=== PATIENT | male | born 1945 | race Caucasian/White ===

== ENCOUNTER → 2020-08-16 08:48 | Outpatient (BNVA) | payer MEDICARE, BC, SELFPAY | PROVIDERS: PCP Family Medicine; Visit Provider Family Medicine | DX: I10 Essential (primary) hypertension (principal); N40.0 Benign prostatic hyperplasia without lower urinary tract symptoms; R79.89 Other specified abnormal findings of blood chemistry | CPT/HCPCS: 80053; 80061; 82043; 82670; 84153; 84403; 85025 ==

== ENCOUNTER → 2021-09-27 12:18 | Outpatient (BNVA) | payer MEDICARE, BC, SELFPAY | PROVIDERS: PCP Family Medicine; Visit Provider Family Medicine | DX: B35.1 Tinea unguium (principal) | CPT/HCPCS: 80053 ==

== ENCOUNTER 2022-04-10 10:59 | Outpatient (CLI) | payer MEDICARE, BC, SELFPAY ==
--- NOTE | 2022-04-10 11:09 | XR_ITS ---
WS: [id number] Lumbar spine, 3 views, 04/10/2022 Clinical Data: low back pain Comparison: None. Findings: No compression fractures or subluxation is seen. No disc space narrowing is seen. There is large oste ophyte formation of the lower thoracic and all the lumbar vertebral bodies. The transverse processes and SI joints are normal. 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
== END 2022-04-10 11:00 | disposition home or self-care (01) ==
LOC: RAD 11:01
PROVIDERS: PCP Family Medicine; Visit Provider Emergency Medicine
DX: M47.816 Spondylosis without myelopathy or radiculopathy, lumbar region (principal)
CPT/HCPCS: 72100

== ENCOUNTER → 2022-06-28 09:03 | Outpatient (BNVA) | payer MEDICARE, BC, SELFPAY | PROVIDERS: PCP Family Medicine; Visit Provider Family Medicine | DX: I10 Essential (primary) hypertension (principal); R79.89 Other specified abnormal findings of blood chemistry; N40.0 Benign prostatic hyperplasia without lower urinary tract symptoms | CPT/HCPCS: 80053; 80061; 82043; 82670; 84153; 84403; 85025 ==

== ENCOUNTER → 2022-09-06 09:19 | Outpatient (BNVA) | payer MEDICARE, BC, SELFPAY | PROVIDERS: PCP Family Medicine; Visit Provider Family Medicine | DX: R79.89 Other specified abnormal findings of blood chemistry (principal) | CPT/HCPCS: 82670; 84402; 84403 ==

== ENCOUNTER → 2022-10-14 14:09 | Outpatient (BNVA) | payer MEDICARE, BC, SELFPAY | PROVIDERS: PCP Family Medicine; Visit Provider Dermatology | DX: C44.712 Basal cell carcinoma of skin of right lower limb, including hip (principal) | CPT/HCPCS: 11102; 17000; 17003; 99213 ==

== ENCOUNTER → 2022-10-21 10:54 | Outpatient (BNVA) | payer MEDICARE, BC, SELFPAY | PROVIDERS: PCP Family Medicine; Visit Provider Dermatology | DX: C44.712 Basal cell carcinoma of skin of right lower limb, including hip (principal) | CPT/HCPCS: 17262 ==

== ENCOUNTER 2022-11-07 03:23 | Inpatient (IN) | payer MEDICARE, BC, SELFPAY ==
[2022-11-07] VITALS (20 sets, daily range): BP systolic 90–156; BP diastolic 51–91; PULSE 65–85; RESP 16–18; TEMP 36.2–36.8; O2SAT 93–97; BMI 27.9
--- NOTE | 2022-11-07 | XR_ITS ---
WS: [id number] XR foot RT 2V [id number] REASON FOR EXAM: JOE PICS FINDINGS: Removal of the previously defined foreign body from the plantar region of the proximal phalanx the th ird toe. XR/XR foot RT 2V [id number] IMPRESSION: Foreign body removal as above.
--- NOTE | 2022-11-07 04:11 | CTR_ITS ---
PROCEDURE INFORMATION: Exam: CT Right Lower Extremity With Contrast, Foot Exam date and time: 11/07/2022 4:32 AM Age: 77 years old Clinical indication: Cellulitis; Toes; Right TECHNIQUE: Imaging protocol: CT of the right lower extremity with intravenous contrast was performed. Exam focused on the foot. Radiation optimization: All CT scans at this facility use at least one of these dose optimization techniques: automated exposure control; mA and/or kV adjustment per patient size (includes targeted exams where dose is matched to clinical indication); or iterative reconstruction. Contrast material: OMNI 350; Contrast volume: 100 ml; Contrast route: INTRAVENOUS (IV); REPORTING DATA: Count of CT and Cardiac NM exams in prior 12 months: This patient has received 0 known CTs and 0 known cardiac nuclear medicine studies in the 12 months prior to the current study. COMPARISON: No relevant prior studies available. RADIATION DOSE METRICS: Total DLP (mGy-cm): 336.47 FINDINGS: Bones/joints: See Soft tissues finding. Soft tissues: There is a linear metallic density in the plantar soft tissues of the 3rd digit. There is diffuse cellulitis present. No definitive bony destructive change CT/CT foot RT w con [id number] IMPRESSION: Linear metallic density in the plantar soft tissues of the 3rd digit. There is diffuse cellulitis. No definitive osteomyelitis.
--- NOTE | 2022-11-07 04:13 | ED_ITS ---
HPI - Extremity Problem General: Chief complaint: Extremity Problem,Nontraumatic Stated complaint: right foot swollen & red Time Seen by Provider: 11/07/22 03:46 Source: patient Mode of arrival: ambulatory Limitations: no limitations History of Present Illness: 77-year-old male states that he has peripheral neuropathy and does not have feeling in his feet he states he started feeling like he had a low-grade fever on Friday and noticed he had erythema to his right foot. Seen his PCP has been on Bactrim states he thought it improved but tonight it was worsening does have erythema to his midfoot and his second and third toe he believes he may have a puncture wound on the bottom of his foot does not remember stepping on anything and states that he has really no feeling there. He had some slight drainage Associated symptoms: Reports fever(s); Deny chest pain or rash Review of Systems Const: Reports: fever(s); Denies: chills ENMT: Denies: throat pain or dental pain Card: Denies: chest pain Resp: Denies: dyspnea GI: Denies: abdominal pain, nausea, vomiting or diarrhea Musc: Reports: extremity pain; Denies: neck pain or back pain Skin/Breast: Reports: erythema; Denies: rash Neuro: Denies: headache(s) PFSH ED PFSH: Medical History BPH (benign prostatic hyperplasia) Essential hypertension History of kidney stones Low 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 Surgical History No pertinent past surgical history Family History Other Kidney stones Social History Smoking and tobacco status: never smoked Alcohol intake: current Alcohol type: beer Substance/Drug Use: never Physical Exam 2 Const: COMMON NORMALS: no acute distress HENMT: COMMON NORMALS: normocephalic and atraumatic HEAD & SCALP: normocephalic and atraumatic Eye: COMMON NORMALS: Equal, round and reactive pupils present and EOMs intact bilaterally PUPIL: Yes Equal, round and reactive pupils present Neck/C-Spine: COMMON NORMALS: full ROM and supple Chest: COMMONS NORMALS: normal inspection of the chest Resp: COMMON NORMALS: normal respiratory effort Cardio: COMMON NORMALS: regular rate, regular rhythm and No murmurs present (Cardio) RATE: regular rate RHYTHM: regular rhythm GI: INSPECTION: Yes normal to inspection Extremity: NARRATIVE EXTREMITY EXAM: Erythema to distal right foot to the midfoot with erythema to the second and third toes he is swelling to the dorsal aspect of his foot with a puncture wound distal pulses intact Neuro: COMMON NORMALS: moves all extremities and no focal motor deficits Psych: COMMON NORMALS: mental status grossly normal, Normal thought process present and cooperative THOUGHT PROCESS: Normal thought process present Skin: COMMON NORMALS: no rashes or lesions noted and no wounds GENERAL SKIN EXAM: no rashes or lesions noted Course Vital Signs: Vital signs: Vital Signs Temperature 98.2 F 11/07/22 03:57 Pulse Rate 85 11/07/22 05:02 Respiratory Rate 16 11/07/22 05:02 Blood Pressure 135/74 11/07/22 05:02 Pulse Oximetry 95 11/07/22 05:02 Oxygen Delivery Me thod Room Air 11/07/22 05:02 MDM - Extremity (Nontraumatic) Medical Decision Making Patient presents with a foreign body to his right foot along with cellulitis of consulted Dr. Granado who reviewed the images we will plan for admission with IV antibiotics and formal washout and removal of the foreign body patient is not septic. Lab Data 11/07/22 04:20 11/07/22 04:[address] 11/07/22 04:11 IMPRESSION: Linear metallic density in the plantar soft tissues of the 3rd digit. There is diffuse cellulitis. No definitive osteomyelitis. Laboratory Results WBC 9.8 10^3/uL (4.0-10.0) 11/07/22 04:20 RBC 4.80 10^6/uL (4.1-5.3) 11/07/22 04:20 Hgb 15.8 g/dL (11.7-16.6) 11/07/22 04:20 Hct 43.7 % (42.0-52.0) 11/07/22 04:20 MCV 91.0 fl (80-94) 11/07/22 04:20 MCH 32.9 pg (28.0-34.0) 11/07/22 04:20 MCHC 36.2 g/dL (30.0-36.0) H 11/07/22 04:20 RDW 12.1 % (12.1-15.1) 11/07/22 04:20 Plt Count 232 10^3/cmm (130-400) 11/07/22 04:20 MPV 10.3 fL (7.4-10.4) 11/07/22 04:20 Neut % (Auto) 74.2 % 11/07/22 04:20 Lymph % (Auto) 12.9 % 11/07/22 04:20 Cole % (Auto) 7.9 % 11/07/22 04:20 Eos % (Auto) 3.9 % 11/07/22 04:20 Baso % (Auto) 0.6 % 11/07/22 04:20 Neut # (Auto) 7.23 10^3/uL (1.8-7.7) 11/07/22 04:20 Lymph # (Auto) 1.3 10^3/uL (0.8-4.8) 11/07/22 04:20 Cole # (Auto) 0.8 10^3/uL (0.2-0.9) 11/07/22 04:20 Eos # (Auto) 0.4 10^3/uL (0.0-0.8) 11/07/22 04:20 Baso # (Auto) 0.1 10^3/uL (0.0-0.1) 11/07/22 04:20 Nucleated RBC % (auto) 0 % 11/07/22 04:20 Nucleated RBCs # 0.0 /100WBC 11/07/22 04:20 ESR 18 mm/hr (0-10) H 11/07/22 04:20 Sodium 140 mmol/L (136-145) 11/07/22 04:20 Potassium 4.7 mmol/L (3.5-5.1) 11/07/22 04:20 Chloride 104 mmol/L (98-107) 11/07/22 04:20 Carbon Dioxide 25 mmol/L (22-29) 11/07/22 04:20 Anion Gap 15.7 (5-19) 11/07/22 04:20 BUN 15 mg/dL (8-23) 11/07/22 04:20 Creatinine 1.1 mg/dL (0.7-1.2) 11/07/22 04:20 GFR Calculation Not Reportable 11/07/22 04:20 Glucose 114 mg/dL (65-115) 11/07/22 04:20 Calculated Osmolality 292 mOsm/kg (285-295) 11/07/22 04:20 Calcium 9.2 mg/dL (8.5-10.5) 11/07/22 04:20 Total Bilirubin 0.2 mg/dL (0.15-1.2) 11/07/22 04:20 AST 19 U/L (0-40) 11/07/22 04:20 ALT 17 U/L (0-41) 11/07/22 04:20 Alkaline Phosphatase 91 U/L (40-130) 11/07/22 04:20 C-Reactive Protein 99.4 mg/L (0.0-4.9) H 11/07/22 04:20 Total Protein 6.7 g/dL (6.6-8.7) 11/07/22 04:20 Albumin 4.2 g/dL (3.5-5.2) 11/07/22 04:20 Globulin 2.5 g/dL (1.3-4.6) 11/07/22 04:20 Discharge Plan Discharge Patient Disposition: Admitted As Inpatient Clinical Impression: Cellulitis of right foot, Acute foreign body of right foot Condition: Stable Prescriptions: No Action omega-3 fatty acids [Fish Oil Concentrate] 1,000 mg capsule 1,000 mg PO BID potassium citrate 5 mEq (540 mg) tablet extended release 2.5 meq PO DAILY Rx Instructions: OTC testosterone 200 mg pellet 200 mg SUBCUT .EVERY 4 - 6 MONTHS cholecalciferol (vitamin D3) 125 mcg (5,000 unit) capsule 125 mcg PO DAILY tamsulosin [Flomax] 0.4 mg capsule 0.4 mg PO BID 90 Days Qty: 180 1RF meloxicam 15 mg tablet 15 mg PO DAILY Qty: 90 3RF ketoconazole 2 % shampoo 1 applic topical .2 x weekly Qty: 120 3RF Rx Instructions: Lather into scalp 2 times weekly. Allow to sit on scalp for 5 minutes before rinsing. ketoconazole 2 % cream 1 applic topical BID Qty: 30 2RF Rx Instructions: To pink scaly areas on face as needed metoprolol tartrate 50 mg tablet 50 mg PO BID Qty: 180 1RF sulfamethoxazole-trimethoprim [Bactrim DS] 800-160 mg tablet 1 tab PO Q12H Qty: 20 0RF terbinafine HCl 250 mg tablet 250 mg PO DAILY Qty: 45 0RF Referrals: Elisa Dao DO [Primary Care Provider] - Coding Level of Care Code ED Spectrographic Analyst for Sonai Rao
[2022-11-07 04:39] LABS: Basophils # 0.1 10^3/uL (0.0-0.1); Basophils % 0.6 %; Eosinophils # 0.4 10^3/uL (0.0-0.8); Eosinophils % 3.9 %; Erythrocyte Sedimentation Rate 18 mm/hr (0-10); Hematocrit 43.7 % (42.0-52.0); Hemoglobin 15.8 g/dL (11.7-16.6); Lymphocytes # 1.3 10^3/uL (0.8-4.8); Lymphocytes % 12.9 %; Mean Corpuscular HGB Conc 36.2 g/dL (30.0-36.0); Mean Corpuscular Hemoglobin 32.9 pg (28.0-34.0); Mean Platelet Volume 10.3 fL (7.4-10.4); Monocytes # 0.8 10^3/uL (0.2-0.9); Monocytes % 7.9 %; Neutrophils # 7.23 10^3/uL (1.8-7.7); Neutrophils % 74.2 %; Nucleated Red Blood Cells % 0 %; Platelet Count 232 10^3/cmm (130-400); Red Cell Distribution Width 12.1 % (12.1-15.1); White Blood Count 9.8 10^3/uL (4.0-10.0)
[2022-11-07] MEDS: iohexol 350 mg/mL 500 mL Btl (per mL) IV (04:47)
[2022-11-07 04:52] LABS: Alanine Aminotransferase 17 U/L (0-41); Albumin Level 4.2 g/dL (3.5-5.2); Alkaline Phosphatase 91 U/L (40-130); Anion Gap 15.7 (5-19); Aspartate Amino Transferase 19 U/L (0-40); Blood Urea Nitrogen 15 mg/dL (8-23); C Reactive Protein 99.4 mg/L (0.0-4.9); Calcium 9.2 mg/dL (8.5-10.5); Carbon Dioxide 25 mmol/L (22-29); Chloride 104 mmol/L (98-107); Globulin 2.5 g/dL (1.3-4.6); Glucose 114 mg/dL (65-115); Osmolality Calculated 292 mOsm/kg (285-295); Potassium 4.7 mmol/L (3.5-5.1); Sodium 140 mmol/L (136-145); Total Bilirubin 0.2 mg/dL (0.15-1.2); Total Protein 6.7 g/dL (6.6-8.7)
[2022-11-07] MEDS: vancomycin 1,000 MG in sodium chloride 0.9% 250 ML 250 MG IV (04:55)
--- NOTE | 2022-11-07 05:22 | P.HP_ITS ---
Providers/Chief Complaint Admitting Physician: Jay Powell MD Primary Care Provider: Elisa Dao DO Chief Complaint: right foot swollen & red History of Present Illness Ganesh Grayson is a very pleasant 77 year old male with a past medical history significant for neuropathy, benign prostatic hypertrophy, and nephrolithiasis who presents to the emergency department with worsening right third toe infection. Patient reports he was in his usual state of health until around about 5-6 days ago when he developed fevers. He states he took Tylenol with some improvement. He was evaluated in clinic on 11/04 and started on Bactrim for cellulitis. No drainage was noted per documentation at that time. He reports cellulitis continued to worsen despite treatment. Patient denies other alleviating or aggravating factors. He currently denies any pain, reporting he has minimal feeling due to a history of neuropathy. In the ED, CT imaging revealed evidence of a foriegn body in the plantar surface of the third toe, diffuse cellulitis, and no evidence of osteomyelitis. Patient does recall briefly walking outside barefoot recently but is unsure on the timeframe of doing so. Review of Systems Narrative: A complete review of systems was obtained and is negative except as stated in HPI Medications/Allergies Home Medications Medication Instructions Recorded Confirmed Last Taken Type cholecalciferol (vitamin D3) 125 125 mcg PO DAILY 01/10/20 11/07/22 11/06/22 History mcg (5,000 unit) capsule omega-3 fatty acids 1,000 mg 1,000 mg PO BID 01/10/20 11/07/22 11/06/22 History capsule (Fish Oil Concentrate) potassium citrate 5 mEq (540 mg) 2.5 meq PO DAILY 01/10/20 11/07/22 11/06/22 History tablet,extended release testosterone 200 mg implant pellet 200 mg SUBCUT .EVERY 4 - 6 MONTHS 01/10/20 11/04/22 Unknown History ketoconazole 2 % shampoo 1 applic topical .2 x weekly #120 09/28/21 11/04/22 Unknown Rx mL ketoconazole 2 % topical cream 1 applic topical BID #30 grams 09/28/21 11/04/22 Unknown Rx terbinafine HCl 250 mg tablet 250 mg PO DAILY #45 tabs 10/02/21 11/04/22 Unknown Rx meloxicam 15 mg tablet 15 mg PO DAILY #90 tabs 06/28/22 11/07/22 11/06/22 Rx metoprolol tartrate 50 mg tablet 50 mg PO BID #180 tabs 06/28/22 11/07/22 11/06/22 Rx tamsulosin 0.4 mg capsule (Flomax) 0.4 mg PO BID 90 days #180 caps 06/28/22 11/07/22 11/06/22 Rx sulfamethoxazole 800 1 tab PO Q12H #20 tabs 11/04/22 11/07/22 11/06/22 Rx mg-trimethoprim 160 mg tablet (Bactrim DS) Allergies Allergy/AdvReac Type Severity Reaction Status Date / Time lisinopril Allergy Severe angioedema Verified 11/07/22 04:00 PFSH Acute PFSH: Medical History (Updated 11/07/22 @ 07:12 by Jay Powell MD) Actinic keratosis BPH (benign prostatic hyperplasia) Essential hypertension History of kidney stones 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 Neuropathy Onychomycosis Osteoarthritis of hands, bilateral Pigmented skin lesion suspicious for malignant neoplasm Surgical History History of lithotripsy Family History Other Kidney stones Social History Smoking and tobacco status: never smoked Alcohol intake: current Alcohol type: beer Substance/Drug Use: never Vitals/I&O/Wt Last Vital Signs Temp 98.2 F 11/07/22 03:57 Pulse 85 11/07/22 05:02 Resp 16 11/07/22 05:02 BP 135/74 11/07/22 05:02 Pulse Ox 95 11/07/22 05:02 O2 Del Method Room Air 11/07/22 05:02 Weight last 48 hrs Weight 88.451 kg Physical Exam Narrative: General: Patient is awake and alert. Very pleasant. Head: Normocephalic. Atraumatic. EOM intact. Neck: No JVD. Cardiovascular: Normal S1 S2. No gallops. No murmurs. Lungs: Clear to auscultation, no use of accessory muscles, no crackles or wheezes. Skin: No jaundice. Abdomen: Normal bowel sounds, abdomen soft and nontender. Extremities: No cyanosis or clubbing. Right second and third toes are markedly swollen with erythema and warmth extending into distal foot over distal metatar sals, decreased sensation in foot. Musculoskeletal: Normal muscular development. Neurological: Moves all 4 extremities. No myoclonus. Data 11/07/22 04:20 11/07/22 04:20 Micro: Microbiology 11/07/22 04:25 Blood Culture - Preliminary Blood SPECIMEN COLLECTED 11/07/22 04:20 Blood Culture - Preliminary Blood SPECIMEN COLLECTED A&P Assessment and plan (1) Acute foreign body of right foot: CT w/ foreign body Podiatry consulted, anticipating surgery today NPO Abx as below (2) Cellulitis of right foot: Cellulitis involving multiple toes and distal foot Start vancomycin, although MRSA risk factors are low Start ceftriaxone Podiatry consult as above Inflammatory markers ordered (3) BPH (benign prostatic hyperplasia): Continue Flomax Qualifiers: Lower urinary tract symptom presence: unspecified whether lower urinary tract symptoms present Qualified Code(s): N40.0 - Benign prostatic hyperplasia without lower urinary tract symptoms (4) Essential hypertension: Continue metoprolol (5) Neuropathy: Previously extensively worked up by patient Would benefit from daily foot exams Plan DVT ppx: SCD d/t surgery Attestations Medical Necessity Statement*: Patient presents w/ foreign body in right third toe seeding cellulitis of right distal foot with expected hospitalization not to cross two midnights. Coding Level of Care Code Acute Code for [facility] Fwd Diagnoses Acute foreign body of right foot S90.851A Cellulitis of right foot L03.115 BPH (benign prostatic hyperplasia) N40.0 Lower urinary tract symptom presence: unspecified whether lower urinary tract symptoms present Essential hypertension I10 Neuropathy G62.9
--- NOTE | 2022-11-07 07:00 | PC.PHAR ---
Patient: Floor: Age: 77 yo Serum creatinine: 1.1 mg/dL Height: 69.7 Inches Weight (kg): 90 IBW (kg): 72.31 Dosing wt(kg): 90 Estimated Creatinine clearance (ml/min): 59.3 CRCL method: Cockcroft and Gault using ibw(default). Drug selected: Vancomycin Loading dose (mg): Vd (liters): 63.0 (factor used: 0.7 L/kg) Abel (hr-1): 0.054 Half life (hrs): 12.84 CLvanco=?? 3.402 L/hr Recommended dose: 1500 mg Interval: 18 hrs Infusion time (hrs): 1 Predicted peak (mcg/mL): 37.3 Predicted trough (mcg/mL): 14.89 Total body weight is being used for vancomycin dosing. Recommendations: Give Vancomycin 1500 mg q 18 hrs with an expected Cpeak of 37.3 mcg/ml and an expected Ctrough of 14.89 mcg/ml AUC 0-24 /RITA Data: RITA 0.5 mcg/mL:?? AUC/RITA:? 1175.8 RITA 1.0 mcg/mL:?? AUC/RITA:? 587.9 --------- RITA 1.5 mcg/mL:?? AUC/RITA:? 391.9 RITA 2.0 mcg/mL:?? AUC/RITA:? 293.9 Renal dosing of other antibiotics (review renal dosing of other medications and list guidelines here): Thank you for the consult, will continue to follow. Signature: Spencer Landaverde, KathrineD
[2022-11-07] MEDS: lactated ringers 1,000 ML 100 ML IV ×2 (07:01→19:48)
--- NOTE | 2022-11-07 07:05 | PM.CONSULT ---
Providers/Reason For Consult Consulting Physician/Specialty*: Dr. Jm Varghese, D.P.M./podiatry Reason for Consult*: Right foot foreign body, cellulitis Attending Physician: Jay Powell MD Primary Care Provider: Elisa Dao DO History of Present Illness History of Present Illness Ganesh Grayson is a 77 year old male who has a past medical history significant for idiopathic peripheral neuropathy, no history of diabetes, who presented to the emergency department with worsening right foot infection. Patient states that a few days ago he was experiencing general malaise and was febrile. He went saw his PCP Dr. Elisa Dao who worked him up for right foot infection (11/04/2022). Patient was started on Bactrim at that point. Patient states that despite the oral antibiotic that his infection continue to worsen. Last night he knew that this was not going to improve on its own so he came to the emergency department for further work-up and evaluation. A CT scan was performed in the emergency department which revealed a metallic foreign body in the plantar surfaces of the right foot. Podiatry was consulted to evaluate and provide further recommendations moving forward. Patient denies any other pedal complaints at this time. He states that he experiences no pain in his right foot at this time due to the neuropathy. Review of Systems General: Reports: 10 or more systems reviewed and unremarkable except in HPI and below Const: Denies: fever(s), chills, body aches or change in appetite Eyes: Denies: change in vision or blurry vision Card: Denies: chest pain, palpitations or irregular heart rhythm Resp: Denies: dyspnea GI: Denies: abdominal pain, nausea, vomiting or diarrhea Musc: Reports: joint stiffness Skin/Breast: Reports: non-healing lesions and lesions Neuro: Reports: numbness in extremities Medications/Allergies Home Medications Medication Instructions Recorded Confirmed Last Taken Type cholecalciferol (vitamin D3) 125 125 mcg PO DAILY 01/10/20 11/07/22 11/06/22 History mcg (5,000 unit) capsule omega-3 fatty acids 1,000 mg 1,000 mg PO BID 01/10/20 11/07/22 11/06/22 History capsule (Fish Oil Concentrate) potassium citrate 5 mEq (540 mg) 2.5 meq PO DAILY 01/10/20 11/07/22 11/06/22 History tablet,extended release testosterone 200 mg implant pellet 200 mg SUBCUT .EVERY 4 - 6 MONTHS 01/10/20 11/04/22 Unknown History ketoconazole 2 % shampoo 1 applic topical .2 x weekly #120 09/28/21 11/04/22 Unknown Rx mL ketoconazole 2 % topical cream 1 applic topical BID #30 grams 09/28/21 11/04/22 Unknown Rx terbinafine HCl 250 mg tablet 250 mg PO DAILY #45 tabs 10/02/21 11/04/22 Unknown Rx meloxicam 15 mg tablet 15 mg PO DAILY #90 tabs 06/28/22 11/07/22 11/06/22 Rx metoprolol tartrate 50 mg tablet 50 mg PO BID #180 tabs 06/28/22 11/07/22 11/06/22 Rx tamsulosin 0.4 mg capsule (Flomax) 0.4 mg PO BID 90 days #180 caps 06/28/22 11/07/22 11/06/22 Rx sulfamethoxazole 800 1 tab PO Q12H #20 tabs 11/04/22 11/07/22 11/06/22 Rx mg-trimethoprim 160 mg tablet (Bactrim DS) Allergies Allergy/AdvReac Type Severity Reaction Status Date / Time lisinopril Allergy Severe angioedema Verified 11/07/22 04:00 Current Medications Generic Name Dose Route Start Last Admin Trade Name Freq PRN Reason Stop Dose Admin Lactated Ringer's 1,000 mls @ 100 mls/hr 11/07/22 06:45 11/07/22 07:01 Lactated Ringers IV 100 mls/hr .Q10H CHRISTINA Administration PFSH Acute PFSH: Medical History (Updated 11/07/22 @ 07:12 by Jay Powell MD) Actinic keratosis BPH (benign prostatic hyperplasia) Essential hypertension History of kidney stones 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 Neuropathy Onychomycosis Osteoarthritis of hands, bilateral Pigmented skin lesion suspicious for malignant neoplasm Surgical History History of lithotripsy Family History Other Kidney stones Social History Smoking and tobacco status: never smoked Alcohol intake: current Alcohol type: beer Substance/Drug Use: never Vitals/I&O/Wt Last Vital Signs Temp 98.0 F 11/07/22 06:24 Pulse 78 11/07/22 06:24 Resp 18 11/07/22 06:24 BP 150/83 11/07/22 06:24 Pulse Ox 97 11/07/22 06:24 O2 Del Method Room Air 11/07/22 06:26 11/06/22 11/07/22 11/07/22 22:59 06:59 14:59 Intake Total 250 / 250 Balance 250 / 250 Weight last 48 hrs Weight 199 lb 8 oz Weight 195 lb Physical Exam Narrative: BELOW IS A FOCUSED LOWER EXTREMITY EXAM GENERAL: A&O x 3 VASCULAR: DP/PT pulses palpable 2/4 with CFT intact, <3seconds to distal digits, edematous right foot DERMATOLOGICAL: Erythematous right foot stemming from second and third digits third digit being the worst. Blistering to dorsum of third digit that appears to wrap around to the medial plantar aspect of the digit. Serous filled blister dorsally has self lanced with dry serous fluid on the dorsum of the foot. Erythema extends to the level of the midfoot. Third digit shows deep reddish-purple discoloration trending towards duskiness. Plantar digital sulcus shows blanching with erythema to the distal plantar aspect of the third digit. Puncture wound measuring 0.2 x 0.2 cm plantar second metatarsal head with dry serous crust at wound base. No active drainage. No underlying fluctuance. No malodor MUSCULOSKELETAL: No gross musculoskeletal deformities noted on exam NEUROLOGICAL: Neurological sensation to the affected foot and ankle is present through L4-S1 dermatomes with no hyper/hypoesthesias, negative Tinel or Valleix's sign IMAGING: CT scan right foot personally interpreted by me which shows increased soft tissue density consistent with cellulitis to the right foot and extending into the third digit. Metallic foreign body in the plantar soft tissues of third digit at the level of the metatarsophalangeal joint. No radiolucencies that would indicate soft tissue emphysema were noted. Data 11/07/22 04:20 11/07/22 04:20 Micro: Microbiology 11/07/22 04:25 Blood Culture - Preliminary Blood SPECIMEN COLLECTED 11/07/22 04:20 Blood Culture - Preliminary Blood SPECIMEN COLLECTED A&P Assessment and plan (1) Cellulitis of right foot: (2) Acute foreign body of right foot: (3) Neuropathy: Plan LABS AND CLINICAL INFO: WBC 9.8 ESR 18 CRP 99.4 Temp 98.0 HR 78 RR 18 Hemodynamically stable ABX: Vanco/Rocephin PLAN: -N.p.o. for procedure today 11/07/2022 at noon -Plan for right foot incision and drainage with removal of foreign body and washout. Discussion was had with patient patient's at bedside this morning that the extent of the infection may require the incisional wound to be left open and packed with return to the operating room for delayed primary closure at a later date. Patient verbalized understanding to this. Cultures both aerobic and anaerobic will be taken intraoperatively as well to direct antibiotic therapy. I discussed with the patient that the goal of today's surgery is to clear the infection and preserve digits of the right foot. However, I did discuss that the infection may be to the point that amputation of third digit may be a possibility if it does not respond to today's incision and drainage. Patient verbalized understanding to this. -Continue empiric antibiotic therapy at this time -Monitor labs and vitals -Weightbearing: Okay to weight-bear for transfers -Discharge plan: Pending Consult Attestations Medical Necessity Statement: Patient has right foot foreign body with cellulitis in the presence of neuropathy. This requires formal OR washout with removal of foreign body. Depending on the extent of the infection patient may need to return to the operating room later this week for delayed primary closure. Coding Level of Care Code Acute Code for [facility] Diagnoses Cellulitis of right foot L03.115 Acute foreign body of right foot S90.851A Neuropathy G62.9
[2022-11-07 07:12] LABS: Procalcitonin 0.09 ng/mL (0-0.5)
--- NOTE | 2022-11-07 07:18 | PM.PN ---
Subjective Subjective: 77yo M seen at bedside this AM. NPO. States he is feeling well. seen by podiatry this AM. will go to OR for I&D with possible amputation pending extent of damage. Denies CP, palpitations, SOB, cough, N/V/D/C, abd pain, MORRISON, vision changes Medications: Reviewed: Yes Vitals/I&O/Wt Last Vital Signs Temp 98.0 F 11/07/22 06:24 Pulse 78 11/07/22 06:24 Resp 18 11/07/22 06:24 BP 150/83 11/07/22 06:24 Pulse Ox 97 11/07/22 06:24 O2 Del Method Room Air 11/07/22 06:26 11/06/22 11/07/22 11/07/22 22:59 06:59 14:59 Intake Total 250 / 250 Balance 250 / 250 Weight last 48 hrs Weight 199 lb 8 oz Weight 195 lb Physical Exam Narrative: General: AOx3, no acute distress, well developed, well nourished, psych: appropriate mood and affect. good judgment and insight. Ears: clear external auditory canals, Eyes: conjunctiva clear w/o exudate or hemorrhage. non-icteric, EOM intact, PERRLA. no signs of nystagmus Nose: nasal mucosa pink, septum midline Oropharynx: good dentition, pink moist mucosa, Neck: FROM, no lymphadenopathy, no tracheal deviation CVD: RRR, normal S1 and S2, no M/R/G. 2+ pulse x 4 extremities, no JVD, no carotid bruit. Lungs: clear lung sounds in all sterling, no rhonchi, wheezing, rales. Abdomen: NT, ND, soft, NABS. Extremities: -RLE: second and third toe with marked swelling, erythema and warmth. 1+ edema up to ankle. decreased ROM at MTP. decreased sensation of foot. no purulent drainage but weeping present on 2nd and 3rd toe. Neuro: CNII-XII grossly intact. decreased sensation bilateral feet. Data 11/07/22 04:20 11/07/22 04:20 Micro: Microbiology 11/07/22 04:25 Blood Culture - Preliminary Blood SPECIMEN COLLECTED 11/07/22 04:20 Blood Culture - Preliminary Blood SPECIMEN COLLECTED A&P Assessment and plan (1) Cellulitis of right foot: IV Vanc and rocephin Podiatry to take to OR this AM NPO (2) Acute foreign body of right foot: unclear etiology. (3) Neuropathy: unclear etiology. chronic. workup done in [place] 10yrs ago. negative. possible familial (4) BPH (benign prostatic hyperplasia): Continue Flomax Qualifiers: Lower urinary tract symptom presence: unspecified whether lower urinary tract symptoms present Qualified Code(s): N40.0 - Benign prostatic hyperplasia without lower urinary tract symptoms (5) Essential hypertension: Continue metoprolol Plan IV vancrebeca NPO to OR this AM with Dr. Varghese disposition pending extent of surgery required Attestations Medical Necessity Statement*: will require 2 overnight stays for surgical eval and treatment Coding Level of Care Code 88220 Diagnoses Cellulitis of right foot L03.115 Acute foreign body of right foot S90.851A Neuropathy G62.9 BPH (benign prostatic hyperplasia) N40.0 Lower urinary tract symptom presence: unspecified whether lower urinary tract symptoms present Essential hypertension I10
[2022-11-07] MEDS: metoprolol tartrate 50 mg Tablet PO ×2 (09:45→17:42)
[2022-11-07] MEDS: tamsulosin 0.4 mg Capsule PO ×2 (09:45→17:43)
[2022-11-07] MEDS: cefTRIAXone 1,000 MG in sodium chloride 0.9% (plus) 50 ML 100 MG IV (09:46)
[2022-11-07] MEDS: pneumococcal (23 valent) SDV 0.5 mL IM (09:48)
[2022-11-07] MEDS: sodium chloride 0.9% 1,000 ML 30 ML IV (11:42)
--- NOTE | 2022-11-07 11:54 | W.PM.OPSUD ---
Surgery/Procedure H&P Update DATE OF PROCEDURE: November 07, 2022 DATE H&P PERFORMED: 11/07/22 CHANGES TO PREVIOUS DOCUMENTATION: No changes PLANNED PROCEDURE: Operation Date: 11/07/22 12:00 Proposed Procedures p Incision And Drainage with removal of foreign body(Right) - Jm Varghese DPM
--- NOTE | 2022-11-07 12:50 | PC.NURSE ---
Pt arrived to PACU, resting comfortably, dressing to right foot C/D/I, right toes p/w/d except right middle toe with purplish color, Dr Varghese aware and monitoring, cap refill < 3 seconds. FOB elevated.
--- NOTE | 2022-11-07 13:09 | P.OP_ITS ---
Operative Report Date of procedure: November 07, 2022 Pre-op diagnosis: Right foot foreign body, cellulitis Post-op diagnosis: Same Post-op findings: Metallic foreign body measuring 0.9 x 0.1 cm darkened discoloration with the appearance of an arm of the staple embedded in the plantar tissues of right foot with surrounding infection extending around the medial and lateral aspects of the third digit extending to the dorsum of the third digit. Procedure done: Removal of deep foreign body CPT 35759 Specimens removed/disposition: Cultures both aerobic and anaerobic sent to [facility] for ID and sensitivity Surgeon: Dr. Jm Varghese, D.P.M. Estimated blood loss: 5 cc Complications: None Findings: Foreign body, see above Brief History: Patient is a 77-year-old male with past medical history significant for idiopathic peripheral neuropathy who stepped on a foreign body with his right foot. He has had worsening infection over the course of the past few days. He sought out care by the emergency department. He was worked up and podiatry was consulted to evaluate and treat. The extent of the infection requires incision and drainage with removal of foreign body. Patient presents to the operating room today for this procedure. The details of the procedure were discussed at length with the patient. All patient questions were answered to patient's satisfaction. No guarantees were given or implied. Procedure: The patient has been NPO since yesterday 11/06/2022 at 8 PM. The history has been reviewed and the history and physical is current. The signed consent was confirmed and placed in the patient chart. Patient imaging has been reviewed and is consistent with the diagnosis. Under mild sedation, the patient was brought into the operating room and left on the gurney in the supine position. Patient is receiving antibiotics [id number] on the floor. IV sedation was then performed by the anesthesiateam. A local field block was then performed using 0.5% Marcaine plain. A pneumatic tourniquet was then placed about the right ankle but was not inflated. The operative extremity was then prepped and draped in the usual fashion. After prep, the following procedure was then performed. Attention was directed to the right foot where under C-arm fluoroscopy the foreign body was triangulated. After the site was identified a longitudinal incision using a #15 blade was made over lying the foreign body measuring 3.5 cm in length. This extended from the third metatarsal head up to the level of the midshaft of the proximal phalanx of the third digit. Blunt dissection was everett ied out with a hemostat through the subcutaneous tissue. The foreign body was identified and was noted to be blackened discoloration measuring 0.9 x 0.1 cm and metallic in nature. This was passed from the operative field. The site was inspected and no further foreign body was visualized. This was confirmed with C-arm imaging. There was however noted to be extravasation of purulent discharge. Cultures both aerobic and anaerobic were taken at this point. The wound was further explored and was noted to track medially and laterally around the third digit to the dorsum of the foot. A second stab incision was made on the dorsum of the third digit medially with a #15 blade to connect the plantar and dorsal infection. Care was taken to remove devitalized tissue that was visualized just below the incisions. The flexor tendon was identified and evaluated and noted to be healthy in appearance. The tissues to the dorsum of the third digit showed hemorrhagic discoloration secondary to bacterial infection. The third digit was noted to be further dusky in appearance. Next, the site was irrigated with copious months of sterile saline. 3 L of saline was irrigated through the wound with a hemostat used to spread the underlying subcutaneous tissue. The foot was expressed and no further purulence remained. The site was then packed with quarter inch iodoform packing gauze before being dressed with 4 x 4 gauze, ABD pad, Kerlix, Maged. The patient tolerated the procedure and anesthesia well and without complication. The patient was transported from the operating room to the recover y room with vital signs stable and vascular status intact to all digits of the right foot with the right foot third digit having a delayed capillary refill in comparison to the adjacent digits. The patient was instructed to remain nonweightbearing to the operative extremity, to keep surgical dressing clean, dry and intact. The patient will be transferred back to the floor once anesthesia criteria is met. I will continue to round on and follow the patient in the inpatient setting and provide recommendations to stabilize the patient for discharge. Given the Intra-Op findings today, the incisional wound was left open and packed. Patient will need to return to the operating room later this week for delayed primary closure versus third digit amputation. The next procedure will ultimately be determined by the blood flow response to the right foot third digit status post incision and drainage and foreign body removal.
--- NOTE | 2022-11-07 15:20 | P.ANESASSM_ITS ---
Pre-Anesthetic Assessment Height/Weight: Height 1.78 m Weight 90.492 kg Temp Pulse Resp BP Pulse Ox O2 Del Method O2 Flow Rate 98.2 F 69 17 126/69 95 Room Air 6 11/07/22 13:03 11/07/22 13:08 11/07/22 13:08 11/07/22 13:08 11/07/22 13:08 11/07/22 13:08 11/07/22 12:53 Operation Date: 11/07/22 12:00 Proposed Procedures p Incision And Drainage with removal of foreign body(Right) - Jm Varghese DPM Familial anesthetic complications: none Was Beta Kal taken within 24 hours: Yes Was Clonidine taken within 24 hours: N/A Last intake: Intake Last Liquid Date 11/06/22 Last Liquid Time 20:30 Last Solid Date 11/06/22 Last Solid Time 20:30 Social No alcohol and No tobacco Exam alert, oriented x 3, clear to auscultation bilaterally and regular rate & rhythm Airway Submandibular: within normal limits Cervical ROM: within normal limits Mallampati: Class II Dentition: chipped CV/HEM Hypertension Neuropsych Neuropathy Anesthetic Plan ASA status: 3 Anesthesia: MAC Medications/Allergies Home Medications Medication Instructions Recorded Confirmed Last Taken Type cholecalciferol (vitamin D3) 125 125 mcg PO DAILY 01/10/20 11/07/22 11/06/22 History mcg (5,000 unit) capsule omega-3 fatty acids 1,000 mg 1,000 mg PO BID 01/10/20 11/07/22 11/06/22 History capsule (Fish Oil Concentrate) potassium citrate 5 mEq (540 mg) 10 meq PO QAM 01/10/20 11/07/22 11/06/22 Hist ory tablet,extended release testosterone 200 mg implant pellet 200 mg SUBCUT .EVERY 4 - 6 MONTHS 01/10/20 11/07/22 2 Months Ago History ~09/07/22 meloxicam 15 mg tablet 15 mg PO DAILY #90 tabs 06/28/22 11/07/22 11/06/22 Rx metoprolol tartrate 50 mg tablet 50 mg PO BID #180 tabs 06/28/22 11/07/22 11/06/22 Rx tamsulosin 0.4 mg capsule (Flomax) 0.4 mg PO BID 90 days #180 caps 06/28/22 11/07/22 11/06/22 Rx coenzyme Q10 30 mg capsule (Co 30 mg PO DAILY 11/07/22 11/07/22 11/06/22 History Q-10) vitamin B complex 1 tab PO DAILY 11/07/22 11/07/22 11/06/22 History Allergies Allergy/AdvReac Type Severity Reaction Status Date / Time lisinopril Allergy Severe angioedema Verified 11/07/22 04:00 Current Medications Generic Name Dose Route Start Last Admin Trade Name Eduardo PRN Reason Stop Dose Admin Lactated Ringer's 1,000 mls @ 100 mls/hr 11/07/22 06:45 11/07/22 07:01 Lactated Ringers IV 100 mls/hr .Q10H CHRISTINA Administration Ceftriaxone Sodium 1,000 mg/ 50 mls @ 100 mls/hr 11/07/22 08:00 11/07/22 10:30 Sodium Chloride IV Infused Q24H CHRISTINA Infusion Protocol Metoprolol Tartrate 50 mg 11/07/22 09:00 11/07/22 09:45 Metoprolol Tartrate 50 Mg Tablet PO 50 mg BID CHRISTINA Administration Tamsulosin HCl 0.4 mg 11/07/22 09:00 11/07/22 09:45 Tamsulosin 0.4 Mg Capsule PO 0.4 mg BID CHRISTINA Administration [facility] Anesthesia Medical History (Updated 11/07/22 @ 07:12 by Jay Powell MD) Actinic keratosis BPH (benign prostatic hyperplasia) Essential hypertension History of kidney stones 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 Neuropathy Onychomycosis Osteoarthritis of hands, bilateral Pigmented skin lesion suspicious for malignant neoplasm Surgical History History of lithotripsy Family History Other Kidney stones Social History Smoking and tobacco status: never smoked Alcohol intake: current Alcohol type: beer Substance/Drug Use: never Data Anesthesia 11/07/22 04:20 11/07/22 04:20 Short CBC 11/07/22 Range/Units 04:20 WBC 9.8 (4.0-10.0) 10^3/uL Hgb 15.8 (11.7-16.6) g/dL Hct 43.7 (42.0-52.0) % MCV 91.0 (80-94) fl Plt Count 232 (130-400) 10^3/cmm Neut % (Auto) 74.2 % Neut # (Auto) 7.23 (1.8-7.7) 10^3/uL BMP 11/07/22 04:20 Sodium 140 Potassium 4.7 Chloride 104 Carbon Dioxide 25 BUN 15 Creatinine 1.1 Glucose 114 Calcium 9.2 Liver Function 11/07/22 Range/Units 04:20 Total Bilirubin 0.2 (0.15-1.2) mg/dL AST 19 (0-40) U/L ALT 17 (0-41) U/L Alkaline Phosphatase 91 (40-130) U/L Albumin 4.2 (3.5-5.2) g/dL Coags 11/07/22 11/07/22 04:20 04:20 ESR 18 H C-Reactive Protein 99.4 H Microbiology 11/07/22 04:25 Blood Culture - Preliminary Blood SPECIMEN COLLECTED 11/07/22 04:20 Blood Culture - Preliminary Blood SPECIMEN COLLECTED Cardiac Studies: No Data to Display
--- NOTE | 2022-11-07 15:21 | ANE.PACU2 ---
Inpatient post-anesthesia follow up: Airway intact: Yes Vital signs: Temperature 98.2 F Pulse Rate 69 Respiratory Rate 17 Blood Pressure 126/69 Pulse Oximetry 95 Oxygen Delivery Me thod Room Air Oxygen Flow Rate 6 Fraction of Inspir ed Oxygen Hydration adequate: Yes Nausea and vomiting: No Pain level: 1 Mental status: Baseline
[2022-11-08] VITALS: BP 131/73; PULSE 75; RESP 17; TEMP 36.8; O2SAT 96
[2022-11-08 04:00] VITALS: BP 133/74; PULSE 75; RESP 17; TEMP 36.7; O2SAT 95
[2022-11-08 05:50] LABS: Basophils % 0.5 %; Eosinophils # 0.4 10^3/uL (0.0-0.8); Hematocrit 40.4 % (42.0-52.0); Hemoglobin 13.9 g/dL (11.7-16.6); Lymphocytes # 1.2 10^3/uL (0.8-4.8); Lymphocytes % 15.6 %; Mean Corpuscular HGB Conc 34.4 g/dL (30.0-36.0); Mean Corpuscular Volume 93.1 fl (80-94); Mean Platelet Volume 10.4 fL (7.4-10.4); Monocytes # 0.6 10^3/uL (0.2-0.9); Neutrophils % 70.4 %; Nucleated Red Blood Cells % 0 %; Platelet Count 231 10^3/cmm (130-400); Red Blood Count 4.34 10^6/uL (4.1-5.3); Red Cell Distribution Width 11.9 % (12.1-15.1); White Blood Count 7.7 10^3/uL (4.0-10.0)
[2022-11-08] MEDS: vancomycin 1,500 MG/300 ML PIGGYBACK 200 MG IV (05:56)
[2022-11-08 06:08] LABS: Anion Gap 14.5 (5-19); Blood Urea Nitrogen 16 mg/dL (8-23); C Reactive Protein 42.1 mg/L (0.0-4.9); Carbon Dioxide 25 mmol/L (22-29); Chloride 103 mmol/L (98-107); Glucose 100 mg/dL (65-115); Osmolality Calculated 287 mOsm/kg (285-295); Potassium 4.5 mmol/L (3.5-5.1); Sodium 138 mmol/L (136-145)
--- NOTE | 2022-11-08 07:25 | PM.PN ---
Subjective Subjective: 77yo M seen at bedside this AM. POD #1 s/p surgical removal of metalic FB from R 3rd toe. states he is feeling well this AM. pain controlled. complaining of chronic neck pain. able to wiggle toes. Denies CP, palpitations, SOB, cough, N/V/D/C, abd pain, MORRISON, vision changes Medications: Reviewed: Yes Vitals/I&O/Wt Last Vital Signs Temp 98.1 F 11/08/22 04:00 Pulse 75 11/08/22 04:00 Resp 17 11/08/22 04:00 BP 133/74 11/08/22 04:00 Pulse Ox 95 11/08/22 04:00 O2 Del Method Room Air 11/08/22 04:00 O2 Flow Rate 6 11/07/22 12:53 11/07/22 11/08/22 11/08/22 22:59 06:59 14:59 Intake Total 1480 / 2580 1000 / 3580 Output Total 350 / 355 925 / 1280 Balance 1130 / 2225 75 / 2300 Weight last 48 hrs Weight 199 lb 8 oz Weight 195 lb Physical Exam Narrative: General: AOx3, no acute distress, well developed, well nourished CVD: RRR, normal S1 and S2, no M/R/G. 2+ pulse x 4 extremities, no JVD, no carotid bruit. Lungs: clear lung sounds in all sterling, no rhonchi, wheezing, rales. Abdomen: NT, ND, soft, NABS. Extremities: -RLE: dressing C/D/I, good blood flow to all digits, purple hue of 3rd toe has improved. no discharge Neuro: CNII-XII grossly intact. decreased sensation bilateral feet. Data 11/08/22 04:55 11/08/22 04:55 Micro: Microbiology 11/07/22 04:25 Blood Culture - Preliminary Blood NEGATIVE TO DATE 11/07/22 04:20 Blood Culture - Preliminary Blood NEGATIVE TO DATE A&P Assessment and plan (1) Cellulitis of right foot: IV Vanc and rocephin POD #1 wound care (2) Acute foreign body of right foot: metalic object removed given intra-operative findings, incisional wound was left open and packed. to return to OR in AM for delayed primary closure. Dr. Varghese (3) Neuropathy: unclear etiology. chronic. workup done in [place] 10yrs ago. negative. possible familial (4) BPH (benign prostatic hyperplasia): Continue Flomax Qualifiers: Lower urinary tract symptom presence: unspecified whether lower urinary tract symptoms present Qualified Code(s): N40.0 - Benign prostatic hyperplasia without lower urinary tract symptoms (5) Essential hypertension: Continue metoprolol (6) Chronic neck pain: kpad lidocaine patch Plan IV vanc, rocephin POD #1 NPO at DC, to OR in AM for closure likely d/c tomorrow afternoon on PO Abx Attestations Medical Necessity Statement*: will require additional night due to surgical procedure on foot Coding Level of Care Code 19236 Diagnoses Cellulitis of right foot L03.115 Acute foreign body of right foot S90.851A Neuropathy G62.9 BPH (benign prostatic hyperplasia) N40.0 Lower urinary tract symptom presence: unspecified whether lower urinary tract symptoms present Essential hypertension I10 Chronic neck pain M54.2; G89.29
--- NOTE | 2022-11-08 07:28 | PM.PN ---
Subjective Subjective: Patient seen at bedside this morning resting comfortably. Day 1 status post right foot incision and drainage of foreign body removal. Patient states that his pain is well controlled. He denies any overnight events. Denies any constitutional symptoms. Vitals/I&O/Wt Last Vital Signs Temp 98.1 F 11/08/22 04:00 Pulse 75 11/08/22 04:00 Resp 17 11/08/22 04:00 BP 133/74 11/08/22 04:00 Pulse Ox 95 11/08/22 04:00 O2 Del Method Room Air 11/08/22 04:00 O2 Flow Rate 6 11/07/22 12:53 11/07/22 11/08/22 11/08/22 22:59 06:59 14:59 Intake Total 1480 / 2580 1000 / 3580 Output Total 350 / 355 925 / 1280 Balance 1130 / 2225 75 / 2300 Weight last 48 hrs Weight 199 lb 8 oz Weight 195 lb Physical Exam Narrative: BELOW IS A FOCUSED LOWER EXTREMITY EXAM GENERAL: A&O x 3 VASCULAR: DP/PT pulses palpable 2/4 with CFT intact, <3seconds to distal digits, edematous right foot DERMATOLOGICAL: Receding erythema to right foot which is now isolated to the second and third digit and level of the metatarsophalangeal joints. Dry serous crust on dorsum of third digit with decreased edema. Skin color is slowly progressing back to normal. No purulence expressed on exam today. No underlying fluctuance. Iodoform packing intact. MUSCULOSKELETAL: No gross musculoskeletal deformities noted on exam NEUROLOGICAL: Neurological sensation to the affected foot and ankle is present through L4-S1 dermatomes with no hyper/hypoesthesias, negative Tinel or Valleix's sign IMAGING: CT scan right foot personally interpreted by me which shows increased soft tissue density consistent with cellulitis to the right foot and extending into the third digit. Metallic foreign body in the plantar soft tissues of third digit at the level of the metatarsophalangeal joint. No radiolucencies that would indicate soft tissue emphysema were noted. Data 11/08/22 04:55 11/08/22 04:55 Micro: Microbiology 11/07/22 04:25 Blood Culture - Preliminary Blood NEGATIVE TO DATE 11/07/22 04:20 Blood Culture - Preliminary Blood NEGATIVE TO DATE A&P Assessment and plan (1) Cellulitis of right foot: (2) Acute foreign body of right foot: (3) Neuropathy: Plan LABS AND CLINICAL INFO: WBC 9.8 ESR 18 CRP 99.4 Temp 98.0 HR 78 RR 18 Hemodynamically stable ABX: Vanco/Rocephin PLAN: -Okay for diet today 11/08/2022. We will plan for delayed primary closure for tomorrow 11/09/2022. Patient will be n.p.o. at midnight 11/09/2022. -Lengthy discussion was had with the patient bedside's morning. Patient is showing signs of improvement after yesterday's incision and drainage and foreign body removal. We discussed that her main goal will be to prevent amputation of the right foot third digit. We will take the patient to the operating room tomorrow for further washout and debridement. At that point we will perform delayed primary closure. We will then follow-up with the patient in the outpatient setting and monitor for the possibility of further intervention. -Continue empiric antibiotic therapy at this time -I do not believe that patient's infection warrants PICC line. This can be managed outpatient with appropriate oral antibiotics. -Monitor labs and vitals -Weightbearing: Okay to weight-bear for transfers -Discharge plan: Pending Attestations Medical Necessity Statement*: Patient underwent right foot incision and drainage with foreign body removal. Patient is going to need delayed primary closure in the coming days. Likely tomorrow 11/09/2022. Patient will need remain in hospital until this point. He will continue to receive IV antibiotics as well. Coding Level of Care Code Acute Code for [facility] Diagnoses Cellulitis of right foot L03.115 Acute foreign body of right foot S90.851A Neuropathy G62.9
[2022-11-08 07:52] VITALS: BP 132/76; RESP 16; TEMP 36.6; O2SAT 95
[2022-11-08] MEDS: cefTRIAXone 1,000 MG in sodium chloride 0.9% (plus) 50 ML 100 MG IV (08:55)
[2022-11-08] MEDS: metoprolol tartrate 50 mg Tablet PO ×2 (09:45→18:34)
[2022-11-08] MEDS: tamsulosin 0.4 mg Capsule PO ×2 (09:45→18:35)
[2022-11-08 11:45] VITALS: BP 136/81; PULSE 77; RESP 18; TEMP 36.8; O2SAT 95
[2022-11-08 15:55] VITALS: BP 133/76; PULSE 70; RESP 18; TEMP 36.6; O2SAT 96
[2022-11-08] MEDS: lidocaine 5% Patch 1 PATCH TOPICAL (16:25)
[2022-11-08] MEDS: vancomycin 1,250 MG/250 ML PIGGYBACK 250 MG IV (18:18)
[2022-11-08 20:00] VITALS: BP 147/78; PULSE 70; RESP 17; TEMP 36.7; O2SAT 95
[2022-11-09] VITALS (14 sets, daily range): BP systolic 118–166; BP diastolic 67–84; PULSE 57–93; RESP 17–19; TEMP 36.1–36.8; O2SAT 91–98
[2022-11-09] MEDS: vancomycin 1,250 MG/250 ML PIGGYBACK 250 MG IV (05:48)
--- NOTE | 2022-11-09 08:13 | W.PM.OPSUD ---
Surgery/Procedure H&P Update DATE OF PROCEDURE: November 09, 2022 DATE H&P PERFORMED: 11/07/22 CHANGES TO PREVIOUS DOCUMENTATION: No changes PLANNED PROCEDURE: Operation Date: 11/07/22 12:00 Proposed Procedures p Incision And Drainage with removal of foreign body(Right) - Jm Varghese DPM Operation Date: 11/09/22 08:25 Proposed Procedures p Right Foot Delayed Wound Closure vs 3rd Digit Amputation(Right) - Jm Varghese DPM
[2022-11-09] MEDS: cefTRIAXone 1,000 MG in sodium chloride 0.9% (plus) 50 ML 100 MG IV (08:33)
[2022-11-09] MEDS: BUPivacaine 0.5% INJ 30 mL INJECTION (08:49)
--- NOTE | 2022-11-09 09:16 | ANES.PREANE2 ---
Pre-Anesthetic Assessment Height/Weight: Height 1.78 m Weight 90.492 kg Temp Pulse Resp BP Pulse Ox O2 Del Method O2 Flow Rate 98 F 72 18 137/82 98 Room Air 6 11/09/22 07:15 11/09/22 07:15 11/09/22 07:15 11/09/22 07:15 11/09/22 07:15 11/09/22 07:15 11/08/22 08:00 Operation Date: 11/07/22 12:00 Proposed Procedures p Incision And Drainage with removal of foreign body(Right) - Jm Varghese DPM Operation Date: 11/09/22 08:25 Proposed Procedures p Right Foot Delayed Wound Closure vs 3rd Digit Amputation(Right) - Jm Varghese DPM Was Beta Kal taken within 24 hours: Yes Last intake: Intake Last Liquid Date 11/08/22 Last Liquid Time 23:40 Last Solid Date 11/08/22 Last Solid Time 18:00 Social No alcohol and No tobacco Exam Normal Cardiopulmonary exam Airway Submandibular: within normal limits Cervical ROM: within normal limits Mallampati: Class II CV/HEM Hypertension Kidney Stones Anesthetic Plan ASA status: 3E Anesthesia: MAC Medications/Allergies Home Medications Medication Instructions Recorded Confirmed Last Taken Type cholecalciferol (vitamin D3) 125 125 mcg PO DAILY 01/10/20 11/07/22 11/06/22 History mcg (5,000 unit) capsule omega-3 fatty acids 1,000 mg 1,000 mg PO BID 01/10/20 11/07/22 11/06/22 History capsule (Fish Oil Concentrate) potassium citrate 5 mEq (540 mg) 10 meq PO QAM 01/10/20 11/07/22 11/06/22 History tablet,extended release testosterone 200 mg implant pellet 200 mg SUBCUT .EVERY 4 - 6 MONTHS 01/10/20 11/07/22 2 Months Ago History ~09/07/22 meloxicam 15 mg tablet 15 mg PO DAILY #90 tabs 06/28/22 11/07/22 11/06/22 Rx metoprolol tartrate 50 mg tablet 50 mg PO BID #180 tabs 06/28/22 11/07/22 11/06/22 Rx tamsulosin 0.4 mg capsule (Flomax) 0.4 mg PO BID 90 days #180 caps 06/28/22 11/07/22 11/06/22 Rx coenzyme Q10 30 mg capsule (Co 30 mg PO DAILY 11/07/22 11/07/22 11/06/22 History Q-10) vitamin B complex 1 tab PO DAILY 11/07/22 11/07/22 11/06/22 History Allergies Allergy/AdvReac Type Severity Reaction Status Date / Time lisinopril Allergy Severe angioedema Verified 11/07/22 04:00 Current Medications Generic Name Dose Route Start Last Admin Trade Name Freq PRN Reason Stop Dose Admin Ceftriaxone Sodium 1,000 mg/ 50 mls @ 100 mls/hr 11/07/22 08:00 11/09/22 09:03 Sodium Chloride IV Infused Q24H CHRISTINA Infusion Protocol Vancomycin/PEG/NADA/Lysine/Water 1,250 mg in 250 mls @ 250 mls/hr 11/08/22 18:00 11/09/22 07:18 Vancocin IV Infused Q12H CHRISTINA Infusion Lidocaine 1 patch 11/08/22 15:57 11/09/22 04:22 Lidocaine 5% Patch TOPICAL Not Given [id number] CHRISTINA Metoprolol Tartrate 50 mg 11/07/22 09:00 11/08/22 18:34 Metoprolol Tartrate 50 Mg Tablet PO 50 mg BID CHRISTINA Administration Potassium Chloride 10 meq 11/08/22 06:00 11/09/22 05:26 Potassium Chloride Er 10 Meq Tablet PO Not Given QAM CHRISTINA Tamsulosin HCl 0.4 mg 11/07/22 09:00 11/08/22 18:35 Tamsulosin 0.4 Mg Capsule PO 0.4 mg BID CHRISTINA Administration PFS Anesthesia Medical History (Updated 11/08/22 @ 09:40 by Norm Adrian MD) Actinic keratosis BPH (benign prostatic hyperplasia) Essential hypertension History of kidney stones 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 Neuropathy Onychomycosis Osteoarthritis of hands, bilateral Pigmented skin lesion suspicious for malignant neoplasm Surgical History History of lithotripsy Family History Other Kidney stones Social History Smoking and tobacco status: never smoked Alcohol intake: current Alcohol type: beer Substance/Drug Use: never Data Anesthesia 11/08/22 04:55 11/08/22 04:55 Short CBC 11/08/22 Range/Units 04:55 WBC 7.7 (4.0-10.0) 10^3/uL Hgb 13.9 (11.7-16.6) g/dL Hct 40.4 L (42.0-52.0) % MCV 93.1 (80-94) fl Plt Count 231 (130-400) 10^3/cmm Neut % (Auto) 70.4 % Neut # (Auto) 5.40 (1.8-7.7) 10^3/uL BMP 11/08/22 04:55 Sodium 138 Potassium 4.5 Chloride 103 Carbon Dioxide 25 BUN 16 Creatinine 0.9 Glucose 100 Calcium 9.0 Coags 11/08/22 04:55 C-Reactive Protein 42.1 H Microbiology 11/07/22 12:27 Gram Stain - Final Other Source Abscess Culture - Preliminary 11/07/22 04:25 Blood Culture - Preliminary Blood NEGATIVE TO DATE 11/07/22 04:20 Blood Culture - Preliminary Blood NEGATIVE TO DATE Cardiac Studies: No Data to Display
--- NOTE | 2022-11-09 09:46 | P.OP_ITS ---
Operative Report Date of procedure: November 09, 2022 Pre-op diagnosis: Right foot cellulitis Post-op diagnosis: Same Post-op findings: Necrotic changes surrounding the right foot third digit proximal phalanx circumferentially with necrotic medial third digit with hemorrhagic changes and necrosis to the subcutaneous tissue along the whole medial third digit Procedure done: Right foot third digit amputation CPT 52853 Pathology: Right foot third digit sent a surgical specimen Surgeon: Dr. Jm Varghese, D.P.M. Estimated blood loss: 10 cc Complications: None Findings: See above Procedure: Patient is a 77-year-old male that has a history of right foot infection secondary to foreign body in the presence of peripheral neuropathy. Patient underwent incision and drainage with removal of foreign body on 11/07/2022. The patient return to the operating room today for delayed primary closure with possible third digit amputation. I discussed with the patient that the decision to amputate the toe would need to be an intraoperative decision based on how the soft tissue slip. Patient verbalized understanding to this. The patient has had the aforementioned chief complaint for some time. Conservative treatment measures have been attempted and the patient has opted for surgical intervention at this time. A lengthy discussion regarding the procedure, including risks and complications has been had with the patient and is noted in the recent clinic note. Written and verbal consent have been obtained. All patient questions have been answered to the patient?s satisfaction. No written or verbal guarantees have been given or implied. The patient has been NPO since midnight. The history has been reviewed and the history and physical is current. The signed consent was confirmed and placed in the patient chart. Patient imaging has been reviewed and is consistent with the diagnosis. Under mild sedation, the patient was brought into the operating room and left on the gurney in the supine position. IV antibiotics were given by the anesthesia team as preoperative surgical prophylaxis. IV sedation was then performed by the anesthesiateam. Local field block was then performed using 0.5% Marcaine plain. The right lower extremity was then prepped using Betadine paint and scrub. After prep, the following procedure was then performed. Attention was directed to the right foot where the full-thickness incision plantar to the right third proximal phalanx was visualized. Site was milked and there was noted to be mild serous drainage coming from the area. The medial aspect of the third digit was examined and there was noted to be substantial necrotic tissue extending from the metatarsophalangeal joint to the proximal interphalangeal joint along the medial aspect of the third digit. This had a hemorrhagic appearance with boggy and necrosis underlying subcutaneous tissue. Given these findings it was determined that the tissue was not viable and that the toe would need to be amputated. A tail clamp was used to grasp the distal aspect of the third digit before a racquet incision was made with the arm of the bracket dorsally circumferentially around the third digit. Dissection was carried down to the level of the metatarsophalangeal joint. The digit was then removed from the foot passively operative field be sent a surgical specimen. It was noted that there was significant fibrotic tissue, vance discoloration enveloping the proximal phalanx. Using a rongeur this devitalized tissue was removed from the foot. The remaining tissues appeared healthy in nature. Good blood flow was noted to the area. The site was then irrigated with copious amounts of sterile saline before attention was directed to closure. Skin was reapproximated using 3-0 nylon in simple interrupted fashion. The incision site was then dressed with Adaptic Betadine soaked 4 x 4 gauze, dry 4 x 4 gauze, Kerlix and Amged bandage. The patient tolerated the procedure and anesthesia well and without complication. The patient was transported from the operating room to the recovery room with vital signs stable and vascular status intact to all remaining digits of the right foot. Thepatient was instructed to remain weightbearing as tolerated in postop shoe to the operative extremity, to keep surgical dressing clean, dry and intact. The patient will be transferred back to the floor once anesthesia criteria is met. Based on the intraoperative findings patient is okay to discharge home from podiatry standpoint. No further intervention per podiatry during this admission. Recommend empiric broad-spectrum antibiotics until culture results r eturn.
--- NOTE | 2022-11-09 09:54 | P.PN_ITS ---
Subjective Subjective: Patient to the OR today for delayed primary closure versus third digit amputation of the right foot. Patient has been n.p.o. since midnight. No overnight events. Vitals/I&O/Wt Last Vital Signs Temp 98 F 11/09/22 07:15 Pulse 72 11/09/22 07:15 Resp 18 11/09/22 07:15 BP 137/82 11/09/22 07:15 Pulse Ox 98 11/09/22 07:15 O2 Del Method Room Air 11/09/22 07:15 O2 Flow Rate 6 11/08/22 08:00 11/08/22 11/09/22 11/09/22 22:59 06:59 14:59 Intake Total 730 / 1440 300 / 300 Output Total Balance 730 / 1040 299 / 299 Physical Exam Narrative: BELOW IS A FOCUSED LOWER EXTREMITY EXAM GENERAL: A&O x 3 VASCULAR: DP/PT pulses palpable 2/4 with CFT intact, <3seconds to distal digits, edematous right foot DERMATOLOGICAL: Erythema persists to right foot. Right foot third digit has a delayed capillary refill in comparison to adjacent digits. Plantar sulcus right foot third digit shows blanching. The base of the incision on the plantar aspe ct of the right foot shows fibrotic tissue visible. Medial aspect of third digit shows necrotic, hemorrhagic discolored tissue nonviable MUSCULOSKELETAL: No gross musculoskeletal deformities noted on exam NEUROLOGICAL: Neurological sensation to the affected foot and ankle is present through L4-S1 dermatomes with no hyper/hypoesthesias, negative Tinel or Valleix's sign IMAGING: CT scan right foot personally interpreted by me which shows increased soft tissue density consistent with cellulitis to the right foot and extending into the third digit. Metallic foreign body in the plantar soft tissues of third digit at the level of the metatarsophalangeal joint. No radiolucencies that would indicate soft tissue emphysema were noted. Data 11/08/22 04:55 11/08/22 04:55 Micro: Microbiology 11/07/22 12:27 Gram Stain - Final Other Source Abscess Culture - Preliminary A&P Assessment and plan (1) Cellulitis of right foot: (2) Acute foreign body of right foot: (3) Neuropathy: Plan LABS AND CLINICAL INFO: VSS Hemodynamically stable ABX: Vanco/Rocephin PLAN: -Okay for diet. Patient underwent right foot third digit amputation this linwood peters 11/09/2022. See operative report for details -No further surgical intervention by podiatry during this admission -Continue empiric antibiotic therapy at this time. Recommend patient be discharged with oral clindamycin 300 3 times daily and ciprofloxacin 500 twice daily x14 days -I do not believe that patient's infection warrants PICC line. This can be managed outpatient with appropriate oral antibiotics. We will monitor results from cultures obtained and adjust antibiotics in the outpatient setting accordingly. -Weightbearing: Okay to weight-bear for transfers in postop shoe -Discharge plan: Patient is okay to discharge home from podiatry standpoint with follow-up within [address] Varghese's office will help facilitate this appointment. Patient be discharged with oral antibiotics clindamycin/Cipro. Patient is to leave surgical dressing clean, dry, intact until his follow-up in the office. If there are any questions or concerns patient is to contact the clinic or go to the emergency department. Attestations Medical Necessity Statement*: Right foot infection secondary to foreign body which required incision and drainage with washout and a return visit to the operating room for right foot third digit amputation. Coding Level of Care Code Acute Code for [facility] Diagnoses Cellulitis of right foot L03.115 Acute foreign body of right foot S90.851A Neuropathy G62.9
[2022-11-09] MEDS: tamsulosin 0.4 mg Capsule PO (10:42)
[2022-11-09] MEDS: metoprolol tartrate 50 mg Tablet PO (10:42)
[2022-11-09] MEDS: ketorolac 30 mg/mL INJ 15 MG IVP (10:43)
--- NOTE | 2022-11-09 11:42 | P.DS_ITS ---
Discharge Providers Date of Admission: 11/07/22 20:11 Date of Discharge: November 09, 2022 Attending Provider at Admission: Jay Powell MD Attending Provider at Discharge: Norm Adrian MD Consults: Dr. Granado - Podiatry Primary Care Provider: Elisa Dao DO Diagnoses at Discharge Discharge Diagnosis (1) Cellulitis of right foot: Status: Acute (2) Acute foreign body of right foot: Details from hospital stay: S/P surgical I&D with right third digit amputation Status: Acute (3) Neuropathy: Status: Acute Reason for Visit Reason for Visit: right foot swollen & red, foreign body, cellulitis Hospital Course Hospital Course 77-year-old male past medical history for neuropathy, BPH, presented to the emergency department with worsening right third toe pain and infection. Patient presented with fevers that had developed 5 to 6 days prior. He was evaluated in clinic on 11/04 started on Bactrim for cellulitis. There was no drainage at that time. Symptoms continue to worsen to the point that he went to the ER for further evaluation. CT was obtained at that time demonstrating a foreign body to the plantar surface of the third toe. In addition he was noted to have diffuse cellulitis but no evidence of osteomyelitis. Patient does have a history of neuropathy, and states that he had been outside walking barefoot but he was uncertain as to when the injury occurred. He was admitted to the hospital and podiatry was consulted. He was initially started on IV vancomycin and ceftriaxone. Labs were consistent with an infectious process. Podiatry was consulted for surgical incision and drainage.Was noted that there was the appearance of a staple, and infection extending around the medial lateral aspects of the third digit. This was removed, and the area was drained. He was returned to med/surg floor, with plan to return to the OR for further debridement if needed, and closure of the wound. Upon return to the OR, was noted further necrosis to the subcutaneous tissue along the whole medial third digit. A right third toe amputation was performed and surgical closure. [facility]. He was monitored for postoperative stability. Cultures were sent. Discussed with Dr. Varghese who wish to start patient on Cipro and clinda for 14 days each. It was recommended that he follow-up with Dr. Varghese early next week. Physical Exam Narrative: General: Cooperative patient in no apparent distress. Well developed. HEENT: Normocephalic, Atraumatic. External ears normal. Nasal passages patent without drainage. MMM. Heart: RRR. Resp: LCTA. No respiratory distress, no use of accessory muscles. Abd: Soft, non-tender. Non-distended. Extremities: Right lower extremity with postsurgical change, dressings in place. Skin: No rash or lesions on exposed areas. Discharge Data Studies Completed and Pending Completed Studies During Hospitalization Category Date Time Status CT foot RT w con [id number] Stat Cat Scan 11/07/22 04:11 Completed Pending at discharge Category Date Time Status Abscess Culture and Gram Stain Routine Lab 11/07/22 12:27 Results Anaerobic Culture Routine Lab 11/07/22 12:27 Received Blood Culture Stat Lab 11/07/22 04:25 Results Pathology: Surgical [PTH] Routine Pth 11/09/22 09:13 Ordered Radiology Impressions Foot CT 11/07/22 04:11 IMPRESSION: Linear metallic density in the plantar soft tissues of the 3rd digit. There is diffuse cellulitis. No definitive osteomyelitis. Laboratory Results WBC 7.7 10^3/uL (4.0-10.0) 11/08/22 04:55 RBC 4.34 10^6/uL (4.1-5.3) 11/08/22 04:55 Hgb 13.9 g/dL (11.7-16.6) 11/08/22 04:55 Hct 40.4 % (42.0-52.0) L 11/08/22 04:55 MCV 93.1 fl (80-94) 11/08/22 04:55 MCH 32.0 pg (28.0-34.0) 11/08/22 04:55 MCHC 34.4 g/dL (30.0-36.0) 11/08/22 04:55 RDW 11.9 % (12.1-15.1) L 11/08/22 04:55 Plt Count 231 10^3/cmm (130-400) 11/08/22 04:55 MPV 10.4 fL (7.4-10.4) 11/08/22 04:55 Neut % (Auto) 70.4 % 11/08/22 04:55 Lymph % (Auto) 15.6 % 11/08/22 04:55 [place] % (Auto) 8.0 % 11/08/22 04:55 Eos % (Auto) 5.0 % 11/08/22 04:55 Baso % (Auto) 0.5 % 11/08/22 04:55 Neut # (Auto) 5.40 10^3/uL (1.8-7.7) 11/08/22 04:55 Lymph # (Auto) 1.2 10^3/uL (0.8-4.8) 11/08/22 04:55 [place] # (Auto) 0.6 10^3/uL (0.2-0.9) 11/08/22 04:55 Eos # (Auto) 0.4 10^3/uL (0.0-0.8) 11/08/22 04:55 Baso # (Auto) 0.0 10^3/uL (0.0-0.1) 11/08/22 04:55 Nucleated RBC % (auto) 0 % 11/08/22 04:55 Nucleated RBCs # 0.0 /100WBC 11/08/22 04:55 ESR 18 mm/hr (0-10) H 11/07/22 04:20 Sodium 138 mmol/L (136-145) 11/08/22 04:55 Potassium 4.5 mmol/L (3.5-5.1) 11/08/22 04:55 Chloride 103 mmol/L (98-107) 11/08/22 04:55 Carbon Dioxide 25 mmol/L (22-29) 11/08/22 04:55 Anion Gap 14.5 (5-19) 11/08/22 04:55 BUN 16 mg/dL (8-23) 11/08/22 04:55 Creatinine 0.9 mg/dL (0.7-1.2) 11/08/22 04:55 GFR Calculation Not Reportable 11/08/22 04:55 Glucose 100 mg/dL (65-115) 11/08/22 04:55 Calculated Osmolality 287 mOsm/kg (285-295) 11/08/22 04:55 Calcium 9.0 mg/dL (8.5-10.5) 11/08/22 04:55 Total Bilirubin 0.2 mg/dL (0.15-1.2) 11/07/22 04:20 AST 19 U/L (0-40) 11/07/22 04:20 ALT 17 U/L (0-41) 11/07/22 04:20 Alkaline Phosphatase 91 U/L (40-130) 11/07/22 04:20 C-Reactive Protein 42.1 mg/L (0.0-4.9) H 11/08/22 04:55 Total Protein 6.7 g/dL (6.6-8.7) 11/07/22 04:20 Albumin 4.2 g/dL (3.5-5.2) 11/07/22 04:20 Globulin 2.5 g/dL (1.3-4.6) 11/07/22 04:20 Procalcitonin 0.09 ng/mL (0-0.5) 11/07/22 04:20 Vitals Last Vital Signs Temp 97.4 F L 11/09/22 09:42 Pulse 78 11/09/22 09:42 Resp 18 11/09/22 09:42 BP 121/72 11/09/22 09:42 Pulse Ox 95 11/09/22 09:42 O2 Del Method Room Air 11/09/22 09:42 O2 Flow Rate 6 11/08/22 08:00 Discharge Plan Discharge Condition: Stable Prescriptions: New lidocaine 5 % Adhesive Patch,Medicated 1 patch topical [id number] Qty: 10 2RF ciprofloxacin HCl [Cipro] 500 mg tablet 500 mg PO BID 14 Days Qty: 28 0RF clindamycin HCl 300 mg capsule 300 mg PO Q8H 14 Days Qty: 42 0RF Continued omega-3 fatty acids [Fish Oil Concentrate] 1,000 mg capsule 1,000 mg PO BID potassium citrate 5 mEq (540 mg) tablet extended release 10 meq PO QAM Rx Instructions: OTC testosterone 200 mg pellet 200 mg SUBCUT .EVERY 4 - 6 MONTHS cholecalciferol (vitamin D3) 125 mcg (5,000 unit) capsule 125 mcg PO DAILY tamsulosin [Flomax] 0.4 mg capsule 0.4 mg PO BID 90 Days Qty: 180 1RF meloxicam 15 mg tablet 15 mg PO DAILY Qty: 90 3RF metoprolol tartrate 50 mg tablet 50 mg PO BID Qty: 180 1RF vitamin B complex Tablet 1 tab PO DAILY Co Q-10 30 mg Capsule 30 mg PO DAILY Discharge Orders: Discharge Order (Routine); Ordered 11/09/22 Ordered By: Festus David Referrals: Elisa Dao DO [Primary Care Provider] - Jm Varghese DPM [Physician] - 4-7 days (Set up appointment for early next week, preferably Friday11/11/22) Discharge Diet: Usual diet Discharge Activity: Limit activity as instructed Patient Instructions: Opioid Safety Discharge Attestations Time Spent in Discharge Care*: greater than 30 min Specific Discharge Activities: educating patient, educating and/or supporting family/caregiver, discussing with pcp/other providers, documenting/other paperwork and evaluating patient/reviewing data Quality Metrics Clinical Quality Measures [ No reported AMI, CVA or VTE this stay] Coding Level of Care Code Acute Code for [facility] Diagnoses Cellulitis of right foot L03.115 Acute foreign body of right foot S90.851A Neuropathy G62.9
[2022-11-09] MEDS: lidocaine 5% Patch 1 PATCH TOPICAL (12:12)
== END 2022-11-09 16:04 | disposition home or self-care (01) | DRG 504 ==
LOC: ER 05:09 → MEDSURG 05:12
PROVIDERS: Podiatrist Foot & Ankle Surgery; Admitting Provider Internal Medicine; Emergency Provider Emergency Medicine; PCP Family Medicine; Visit Provider Family Medicine
PROC: 0JCQ0ZZ Extirpation of Matter from Right Foot Subcutaneous Tissue and Fascia, Open Approach (ICD-10-PCS; principal; 2022-11-07 12:00)
PROC: 0Y6T0Z0 Detachment at Right 3rd Toe, Complete, Open Approach (ICD-10-PCS; CPT 13160; principal; 2022-11-09 08:15)
DX: M60.271 Foreign body granuloma of soft tissue, not elsewhere classified, right ankle and foot (principal); I96 Gangrene, not elsewhere classified; L03.115 Cellulitis of right lower limb; G60.9 Hereditary and idiopathic neuropathy, unspecified; Z18.12 Retained nonmagnetic metal fragments; N40.0 Benign prostatic hyperplasia without lower urinary tract symptoms; L57.0 Actinic keratosis; M54.42 Lumbago with sciatica, left side; M19.042 Primary osteoarthritis, left hand; M19.041 Primary osteoarthritis, right hand; F10.90 Alcohol use, unspecified, uncomplicated; G89.29 Other chronic pain; M54.2 Cervicalgia
CPT/HCPCS: 36415; 73620; 73701; 76000; 80048; 80053; 84145; 85025; 85651; 86140; 87040; 87070; 87075; 87077; 87186; 87205; 88305; 88311; 90471; 90732; 96365; 99285; G0378; J0696; J1885; J2250; J2405; J2704; J3010; J3370; J3490; J7030; J7050; J7120; Q9967

== ENCOUNTER → 2022-11-11 13:59 | Outpatient (BNVA) | payer MEDICARE, BC, SELFPAY | PROVIDERS: PCP Family Medicine; Visit Provider Podiatrist Foot & Ankle Surgery | DX: L03.115 Cellulitis of right lower limb (principal); G62.9 Polyneuropathy, unspecified; Z89.421 Acquired absence of other right toe(s) | CPT/HCPCS: 99213 ==

== ENCOUNTER → 2022-11-18 13:36 | Outpatient (BNVA) | payer MEDICARE, BC, SELFPAY | PROVIDERS: PCP Family Medicine; Visit Provider Podiatrist Foot & Ankle Surgery | DX: Z98.890 Other specified postprocedural states (principal); G62.9 Polyneuropathy, unspecified; Z89.421 Acquired absence of other right toe(s) | CPT/HCPCS: 99213; A6219 ==

== ENCOUNTER → 2022-11-25 14:41 | Outpatient (BNVA) | payer MEDICARE, BC, SELFPAY | PROVIDERS: PCP Family Medicine; Visit Provider Podiatrist Foot & Ankle Surgery | DX: Z89.421 Acquired absence of other right toe(s) (principal); Z98.890 Other specified postprocedural states; G62.9 Polyneuropathy, unspecified; L97.512 Non-pressure chronic ulcer of other part of right foot with fat layer exposed | CPT/HCPCS: 11042; A6219 ==

== ENCOUNTER → 2022-12-03 13:04 | Outpatient (BNVA) | payer MEDICARE, BC, SELFPAY | PROVIDERS: PCP Family Medicine; Visit Provider Podiatrist Foot & Ankle Surgery | DX: Z89.421 Acquired absence of other right toe(s) (principal); Z98.890 Other specified postprocedural states; G62.9 Polyneuropathy, unspecified; L97.512 Non-pressure chronic ulcer of other part of right foot with fat layer exposed | CPT/HCPCS: 11042 ==

== ENCOUNTER → 2022-12-10 08:08 | Outpatient (BNVA) | payer MEDICARE, BC, SELFPAY | PROVIDERS: PCP Family Medicine; Visit Provider Nurse Practitioner Family | DX: T81.49XA Infection following a procedure, other surgical site, initial encounter (principal); L03.031 Cellulitis of right toe; Y83.5 Amputation of limb(s) as the cause of abnormal reaction of the patient, or of later complication, without mention of misadventure at the time of the procedure; I96 Gangrene, not elsewhere classified | CPT/HCPCS: 11042; 99213 ==

== ENCOUNTER → 2022-12-17 07:55 | Outpatient (BNVA) | payer MEDICARE, BC, SELFPAY | PROVIDERS: PCP Family Medicine; Visit Provider Nurse Practitioner Family | DX: I96 Gangrene, not elsewhere classified (principal); L97.512 Non-pressure chronic ulcer of other part of right foot with fat layer exposed; T81.49XA Infection following a procedure, other surgical site, initial encounter; Y83.5 Amputation of limb(s) as the cause of abnormal reaction of the patient, or of later complication, without mention of misadventure at the time of the procedure; Z51.89 Encounter for other specified aftercare; G62.9 Polyneuropathy, unspecified; Z89.421 Acquired absence of other right toe(s) | CPT/HCPCS: 11042; 99212 ==

== ENCOUNTER → 2023-04-24 08:19 | Outpatient (BNVA) | payer MEDICARE, BC, SELFPAY | PROVIDERS: PCP Family Medicine; Visit Provider Nurse Practitioner Family | DX: Z85.828 Personal history of other malignant neoplasm of skin (principal); L57.0 Actinic keratosis; L72.3 Sebaceous cyst; L57.8 Other skin changes due to chronic exposure to nonionizing radiation; L81.4 Other melanin hyperpigmentation; D22.4 Melanocytic nevi of scalp and neck | CPT/HCPCS: 17000; 99213 ==

== ENCOUNTER → 2023-05-07 10:15 | Outpatient (BNVA) | payer MEDICARE, BC, SELFPAY | PROVIDERS: PCP Family Medicine; Visit Provider Dermatology | DX: D48.5 Neoplasm of uncertain behavior of skin (principal) | CPT/HCPCS: 11402; 12031 ==

== ENCOUNTER → 2023-08-11 08:40 | Outpatient (BNVA) | payer MEDICARE, BC, SELFPAY | PROVIDERS: PCP Family Medicine; Visit Provider Family Medicine | DX: I10 Essential (primary) hypertension (principal); R79.89 Other specified abnormal findings of blood chemistry; R35.1 Nocturia; Z79.899 Other long term (current) drug therapy | CPT/HCPCS: 80053; 80061; 82670; 84153; 84402; 84403; 85025 ==

== ENCOUNTER 2023-10-02 12:37 | Outpatient (CLI) | payer MEDICARE, BC, SELFPAY ==
--- NOTE | 2023-10-02 | ECG_ITS ---
[facility] Test Date: 2023-10-02 Pat Name: Ganesh Grayson Department: Room: Gender: Male Telephone Directory Deliverer: : 1945 Requested By: Elisa Dao Order Number: [id number] Lubin MD: Sander Gray M.D. Interpretive Statements NAME OF STUDY: TREADMILL STRESS TEST INDICATION: UNCONTROLLED HTN, PROCEDURE: At the baseline, the patient's blood pressure was 137/68 with a heart rate of 102. The baseline electrocardiogram showed normal sinus rhythm with normal ST-Ts.. The patient exercised for 6 minutes on a standard Osman protocol. Patient attained a maximum heart rate of 168 beats per minute(116% of the maximum predicted heart rate) with a blood pressure at the peak exercise of 185/76 mm Hg. The EKG at the peak exercise revealed no significant changes. Patient did not have any chest pain or any significant cardiac arrhythmias with the exercise During the recovery phase, there were no new changes. Blood pressure at the end of the recovery phase was 125/80 mm Hg with a heart rate of 120 per minute. CONCLUSION: 1. Normal EKG response to treadmill exercise 2. No exercise-induced chest pain or cardiac arrhythmia 3. Slightly impaired exercise tolerance, attained a maximum of 7.0 METs 4. Prolonged heart rate recovery time(heart rate recovery of 9 at 1 minute) Electronically Signed On 10-04-2023 15:01:57 CDT by Sander Gray M.D. [email or web address]
[2023-10-02 12:43] VITALS: BMI 29.1
[2023-10-02] MEDS: metoprolol tartrate 1 mg/1 mL SDV 5 mL 5 MG IVP (13:17)
[2023-10-02] MEDS: metoprolol tartrate 50 mg Tablet PO (13:29)
[2023-10-02 13:59] VITALS: BP 131/84; PULSE 87
--- NOTE | 2023-10-02 14:01 | PC.NURSE ---
1329: Stress test summary The patient is here today for a treadmill stress test for uncontrolled HTN. He did well on the treadmill, reaching his target HR of 122 at 4 minutes. The test was continued for another 2 minutes. He denied chest pain. He had SOB. Shortly after returning to the bed for recovery he went into an SVT. Rates of 150-167 with a blood pressure of 173/80. Dr. Gray was notified, orders received. Lopressor 5mg SIVP at 1317 Metoprolol 50 mg PO at 1329 Dc'd home at 1340. BP 131/87. HR 87, NSR. Sat 97% on Room air.
== END 2023-10-02 12:38 | disposition home or self-care (01) ==
PROVIDERS: PCP Family Medicine; Visit Provider Family Medicine
DX: I10 Essential (primary) hypertension (principal)
CPT/HCPCS: 36415; 93017; 96374; J3490

== ENCOUNTER → 2023-10-29 14:35 | Outpatient (BNVA) | payer MEDICARE, BC, SELFPAY | PROVIDERS: PCP Family Medicine; Visit Provider Nurse Practitioner Family | DX: L72.0 Epidermal cyst (principal); L57.8 Other skin changes due to chronic exposure to nonionizing radiation; L81.4 Other melanin hyperpigmentation; D22.4 Melanocytic nevi of scalp and neck; L57.0 Actinic keratosis; L82.0 Inflamed seborrheic keratosis | CPT/HCPCS: 17000; 17110; 99213 ==

== ENCOUNTER → 2024-05-03 13:23 | Outpatient (BNVA) | payer MEDICARE, BC, SELFPAY | PROVIDERS: PCP Family Medicine; Visit Provider Nurse Practitioner Family | DX: L72.0 Epidermal cyst (principal); L57.8 Other skin changes due to chronic exposure to nonionizing radiation; L81.4 Other melanin hyperpigmentation; D22.4 Melanocytic nevi of scalp and neck; Z08 Encounter for follow-up examination after completed treatment for malignant neoplasm; Z85.828 Personal history of other malignant neoplasm of skin; L82.0 Inflamed seborrheic keratosis; L53.8 Other specified erythematous conditions; Z78.9 Other specified health status; L57.0 Actinic keratosis; L29.89 Other pruritus | CPT/HCPCS: 17000; 17110; 99213 ==

== ENCOUNTER → 2024-07-30 09:25 | Outpatient (BNVA) | payer MEDICARE, BC, SELFPAY | PROVIDERS: PCP Family Medicine; Visit Provider Family Medicine | DX: R79.89 Other specified abnormal findings of blood chemistry (principal); I10 Essential (primary) hypertension | CPT/HCPCS: 80053; 80061; 82040; 84270; 84403; 85025 ==

== ENCOUNTER → 2024-11-18 11:23 | Outpatient (BNVA) | payer MEDICARE, BC, SELFPAY | PROVIDERS: PCP Family Medicine; Visit Provider Nurse Practitioner Family | DX: L81.4 Other melanin hyperpigmentation (principal); L57.8 Other skin changes due to chronic exposure to nonionizing radiation; D22.5 Melanocytic nevi of trunk; L82.1 Other seborrheic keratosis; Z08 Encounter for follow-up examination after completed treatment for malignant neoplasm; Z85.828 Personal history of other malignant neoplasm of skin; L57.0 Actinic keratosis | CPT/HCPCS: 17000; 99213 ==

== ENCOUNTER → 2025-01-25 11:04 | Outpatient (BNVA) | payer MEDICARE, BC, SELFPAY | PROVIDERS: PCP Family Medicine; Visit Provider Family Medicine | DX: R10.A0 Flank pain, unspecified side (principal) | CPT/HCPCS: 81000 ==

== ENCOUNTER 2025-02-01 08:32 | Outpatient (CLI) | payer MEDICARE, BC, SELFPAY ==
--- NOTE | 2025-02-01 08:30 | CT_ITS ---
WS: [id number] CT ABDOMEN AND PELVIS NONCONTRAST HISTORY: right flank pain TECHNIQUE: Imaging performed through the abdomen and pelvis. Coronal and sagittal reformats are submitted. All CT scans at [facility] use at least one of these dose optimization techniques: automated exposure control; mA and/or kV adjustment per patient size (includes targeted exams where dose is matched to clinical indication); or iterative reconstruction. DLP: 409.68 mGy.cm COMPARISON: None available. Lower thorax: Linear atelectasis at the lung bases. Heart size normal. Liver: Normal size liver. No mass or bile duct dilatation. Gallbladder: Normal gallbladder. No pericholecystic fluid or cholelithiasis. No gallbladder wall thickening. Pancreas: Normal size and attenuation. Normal pancreatic duct. No pancreatitis or mass. Spleen: Normal. Adrenal glands: Normal. No mass. Right kidney: Mild perinephric stranding. No obstruction. No renal or ureteral calcifications. Left kidney: Mild perinephric stranding. Cortical hypodense 11 mm in the posterior kidney. No renal obstruction or ureteral obstruction. Nonobstructing calcification. Aorta: Mild atherosclerosis abdominal aorta with no aneurysm. No free fluid, intraperitoneal air or significant lymphadenopathy. GI tract: No obstruction. No colitis. The appendix is not identified but there are no secondary findings of appendicitis. There are a few scattered diverticula without acute diverticulitis. Abdominal wall: Small umbilical hernia contains fat only. Pelvis: No free fluid or adenopathy. Normal urinary bladder. Prostate is enlarged. Fat-containing inguinal canals. Osseous structures: Unremarkable. CT/CT kidney stone [id number] IMPRESSION: 1. No hydronephrosis or ureteral calcifications. 2. Bilateral perinephric stranding, RIGHT greater than LEFT. Correlate for pos sible urinary tract infection. 3. No adenopathy or ascites. 4. The appendix is not identified but there are no secondary findings of acute appendicitis. 5. Prostate enlargement.
== END 2025-02-01 08:33 | disposition home or self-care (01) ==
LOC: RAD 08:36
PROVIDERS: PCP Family Medicine; Visit Provider Family Medicine
DX: R10.A1 Flank pain, right side (principal); R93.422 Abnormal radiologic findings on diagnostic imaging of left kidney; R93.421 Abnormal radiologic findings on diagnostic imaging of right kidney; N40.0 Benign prostatic hyperplasia without lower urinary tract symptoms; Z90.89 Acquired absence of other organs
CPT/HCPCS: 74176; 81000

== ENCOUNTER → 2025-03-28 08:26 | Outpatient (BNVA) | payer MEDICARE, BC, SELFPAY | PROVIDERS: PCP Family Medicine; Visit Provider Family Medicine | DX: I10 Essential (primary) hypertension (principal) | CPT/HCPCS: 80053 ==

== ENCOUNTER → 2025-04-04 08:26 | Outpatient (BNVA) | payer MEDICARE, BC, SELFPAY | PROVIDERS: PCP Family Medicine; Visit Provider Family Medicine | DX: I10 Essential (primary) hypertension (principal); R73.9 Hyperglycemia, unspecified | CPT/HCPCS: 80053; 83036 ==